=== PATIENT | female | born 1950 | race Hispanic/Latino ===

== ENCOUNTER 2019-06-14 13:00 | Outpatient (AMBR) | payer MEDICARE, MEDICAID, SELFPAY ==
--- NOTE | 2019-05-17 14:47 | PT.ODAYNRPT ---
PT Outpatient Daily Note Date of Service: May 17, 2019 OP Daily Note Visit Reasons: post op right knee Outpatient Physical Therapy Treatment Date: 05/17/19 Subjective: Pt mention that her knee feels good. No pain today in the knee. Objective: Please see flow chart for list of ther ex performed Assessment: difficulty with SAQ due to poor quad activation. Pt demonstrate improvement with knee flexion AROM allowing her to complete full sci fit cycle Plan: Continue with PT Length of Time (minutes) of Treatment: 30 Minutes Office Procedures PT Procedures PT Date of Service: 05/17/19 Therapeutic Exercise 30 minutes: Yes
--- NOTE | 2019-05-19 16:25 | PT.ODAYNRPT ---
PT Outpatient Daily Note Date of Service: May 19, 2019 OP Daily Note Visit Reasons: post op right knee Outpatient Physical Therapy Treatment Date: 05/19/19 Subjective: Pt's knee still buckle but is feeling much better. Pt mention that she feels better each PT session and notice her knee is moving more. Pt can now make a full coquille on the bike. Objective: Please see flow chart for list of ther ex performed Assessment: continue to improve with AAROM knee flexion up to 90 deg. Pt still guards with PROM due to pain and frequent cues to relax to increase knee flexion ROM. Plan: Continue with PT Length of Time (minutes) of Treatment: 30 Minutes Office Procedures PT Procedures PT Date of Service: 05/17/19 Therapeutic Exercise 30 minutes: Yes PT Procedures PT Date of Service: 05/19/19 Therapeutic Exercise 30 minutes: Yes
--- NOTE | 2019-05-21 13:50 | PTNOTE_ITS ---
PT Outpatient Daily Note Date of Service: May 21, 2019 OP Daily Note Visit Reasons: post op right knee Outpatient Physical Therapy Treatment Date: 05/21/19 Subjective: pt states she still has pain of the RLE. Objective: see flow sheet. Assessment: pt came in with FWW with antalgic gait pattern due to pain. pt lacks knee flexion as noted during PROM. she tolerated the stretching but with pain and discomfort. educated pt about the benefits of PROM. she's a fwe degrees from 90. advised pt to continue her HEP. she is hopeful in getting better. she continues to have weak quads with fait muscle force during SLR. Plan: continue POC per PT. Length of Time (minutes) of Treatment: 30 Minutes WOODEN FURNITURE POLISHER Service Modifier Method I: Divide the number of min of care provided by the WOODEN FURNITURE POLISHER/DESKTOP SUPPORT TECHNICIAN by the total min of care provided then multiply by 100. If greater than 11 percent modifier is required. Method II: Divide the total time of care provided to patient by 10 (round to the nearest whole number) and add 1 min. to set the minimum time requirement. If treatment total was 60 min., then 10% of 6 min Did WOODEN FURNITURE POLISHER provide more than 10% of the care?: Yes PT CQ modifier applied: CQ Modifier applied Office Procedures PT Procedures PT Date of Service: 05/21/19 Therapeutic Exercise 15 minutes: Yes Manual Mail Opener 15 minutes: Yes PT Procedures PT Date of Service: 05/17/19 Therapeutic Exercise 30 minutes: Yes PT Procedures PT Date of Service: 05/19/19 Therapeutic Exercise 30 minutes: Yes
--- NOTE | 2019-05-24 14:38 | PTNOTE_ITS ---
PT Outpatient Daily Note Date of Service: May 24, 2019 OP Daily Note Visit Reasons: post op right knee Outpatient Physical Therapy Treatment Date: 05/24/19 Subjective: Pt mention that her knee feels better. Objective: Knee flexion AROM/PROM: 91 deg//100 deg Assessment: Pt continues to improve with knee flexion AROM and mobility allowing her to bend knee more with preswing Plan: Continue with PT Length of Time (minutes) of Treatment: 30 Minutes Office Procedures PT Procedures PT Date of Service: 05/21/19 Therapeutic Exercise 15 minutes: Yes Manual Cycle Director 15 minutes: Yes PT Procedures PT Date of Service: 05/17/19 Therapeutic Exercise 30 minutes: Yes PT Procedures PT Date of Service: 05/19/19 Therapeutic Exercise 30 minutes: Yes PT Procedures PT Date of Service: 05/24/19 Therapeutic Exercise 30 minutes: Yes
--- NOTE | 2019-05-27 12:09 | PTNOTE_ITS ---
PT Outpatient Daily Note Date of Service: May 27, 2019 OP Daily Note Visit Reasons: post op right knee Outpatient Physical Therapy Treatment Date: 05/27/19 Subjective: Pt notice some seeping of blood and white pus from the top of her knee. Pt does not have any pain but notice the pus last night after she came out of the shower Objective: Please see flow chart for list of ther ex performed Assessment: tolerate exercises; no knee flexion performed today due to noticeable pus superior knee. Pt did not perform any knee flexion exercises today and advised to follow up with MD or head to ER if she notice yellow/green pus with warmth in the knee due to possible knee infection. Pt gave verbal consent Plan: Continue with PT Length of Time (minutes) of Treatment: 30 Minutes Office Procedures PT Procedures PT Date of Service: 05/21/19 Therapeutic Exercise 15 minutes: Yes Manual Supervisor Keymodule Assembly 15 minutes: Yes PT Procedures PT Date of Service: 05/27/19 Therapeutic Exercise 30 minutes: Yes PT Procedures PT Date of Service: 05/17/19 Therapeutic Exercise 30 minutes: Yes PT Procedures PT Date of Service: 05/19/19 Therapeutic Exercise 30 minutes: Yes PT Procedures PT Date of Service: 05/24/19 Therapeutic Exercise 30 minutes: Yes
--- NOTE | 2019-06-01 16:12 | PT.ODAYNRPT ---
PT Outpatient Daily Note Date of Service: June 01, 2019 OP Daily Note Visit Reasons: post op right knee Outpatient Physical Therapy Treatment Date: 06/01/19 Subjective: Pt mention that her knee is better. Pt was given antibiotic for her pinhole. Pt's pinhole closed again. Pt is walking better with less pain Objective: Please see flow chart for list of ther ex performed Assessment: no knee flexion stretches today to prevent scar from opening. Pt tolerate all exercises performed Plan: Continue with PT Length of Time (minutes) of Treatment: 30 Minutes Office Procedures PT Procedures PT Date of Service: 05/21/19 Therapeutic Exercise 15 minutes: Yes Manual Carbon Sequestration Plant Engineer 15 minutes: Yes PT Procedures PT Date of Service: 05/27/19 Therapeutic Exercise 30 minutes: Yes PT Procedures PT Date of Service: 05/17/19 Therapeutic Exercise 30 minutes: Yes PT Procedures PT Date of Service: 05/19/19 Therapeutic Exercise 30 minutes: Yes PT Procedures PT Date of Service: 05/24/19 Therapeutic Exercise 30 minutes: Yes PT Procedures PT Date of Service: 06/01/19 Therapeutic Exercise 30 minutes: Yes
--- NOTE | 2019-06-03 11:26 | PTNOTE_ITS ---
PT OP Progress/Discharge Note Date of Service: June 03, 2019 Progress Note/DC Note Progress Note/Discharge Note: Progress Note Patient Information Visit Reasons: post op right knee Medical Diagnosis: Z47.1; Z96.651 Treatment Dx #1: Right Knee Mobility Deficits Treatment Dx #2: Right Knee Weakness Service Continue Service or Discharge: Continue Service Certification Date Certification Dates: 06/03/19 to 09/03/19 Status Subjective: Pt mention that her left knee is feeling better. Pt mention that her pinhole is a lot better since she seen the surgeon. Pt continues to use antibiotic ointment on the knee. Pt's knee still jose david with prolonged walking and standing. Pt still has limitation with balance, self care, cooking, cleaning, chores, and performing normal ADLs. Objective: Right Knee AROM: 10 to 95 deg Right Knee MMTs Quads: 3/5 Hs: 3/5 Right Hip MMTs Glute Med: 3/5 Glute Max: 3/5 SLS: 1 sec Assessment: Pt demonstrate improvement with knee ROM and strength allowing her to ambulate and perform ADLs with less limitation. Pt still exhibit quad weakness leading to knee buckling with ambulation. Pt has not met set goals yet and will continue to benefit from physical therapy to work on ambulation, balanc e, and strength. Pt is consistent with her HEP and stretches at home, thank you for your referrals. Plan: Continue with PT/POC and add 6 sessions (2 x wk for 3 wks) Office Procedures PT Procedures PT Date of Service: 05/21/19 Therapeutic Exercise 15 minutes: Yes Manual Escort Car Driver 15 minutes: Yes PT Procedures PT Date of Service: 05/27/19 Therapeutic Exercise 30 minutes: Yes PT Procedures PT Date of Service: 06/03/19 Therapeutic Exercise 30 minutes: Yes PT Procedures PT Date of Service: 05/17/19 Therapeutic Exercise 30 minutes: Yes PT Procedures PT Date of Service: 05/19/19 Therapeutic Exercise 30 minutes: Yes PT Procedures PT Date of Service: 05/24/19 Therapeutic Exercise 30 minutes: Yes PT Procedures PT Date of Service: 06/01/19 Therapeutic Exercise 30 minutes: Yes
--- NOTE | 2019-06-07 13:05 | PTNOTE_ITS ---
PT Outpatient Daily Note Date of Service: June 07, 2019 OP Daily Note Visit Reasons: post op right knee Outpatient Physical Therapy Treatment Date: 06/07/19 Subjective: Pt mention that her knee still has a pinhole leak. Pt continues to stretch the knee at home which seems to open up the pinhole. Pt mention that her family wants her to stay home due to the virus. Objective: Please see flow chart for list of ther ex performed Assessment: no knee flexion stretching performed today due to pinhole opening superior to the scar. Pt advised not to stretch at home only in therapy session with supervision. Pt gave verbal consent. Plan: Continue with PT Length of Time (minutes) of Treatment: 30 Minutes Office Procedures PT Procedures PT Date of Service: 05/21/19 Therapeutic Exercise 15 minutes: Yes Manual President Finance Company 15 minutes: Yes PT Procedures PT Date of Service: 05/27/19 Therapeutic Exercise 30 minutes: Yes PT Procedures PT Date of Service: 06/03/19 Therapeutic Exercise 30 minutes: Yes PT Procedures PT Date of Service: 06/07/19 Therapeutic Exercise 30 minutes: Yes PT Procedures PT Date of Service: 05/17/19 Therapeutic Exercise 30 minutes: Yes PT Procedures PT Date of Service: 05/19/19 Therapeutic Exercise 30 minutes: Yes PT Procedures PT Date of Service: 05/24/19 Therapeutic Exercise 30 minutes: Yes PT Procedures PT Date of Service: 06/01/19 Therapeutic Exercise 30 minutes: Yes
--- NOTE | 2019-06-09 14:23 | PT.ODAYNRPT ---
PT Outpatient Daily Note Date of Service: June 09, 2019 OP Daily Note Visit Reasons: post op right knee Outpatient Physical Therapy Treatment Date: 06/09/19 Subjective: Pt notice light yellow coming out from the pinhole opening. Pt's knee feels good. Pt meniton that she thinks it's the CPM that cause the incision to open. Pt notice less knee buckling past week Objective: Please see flow chart for list of ther ex performed Assessment: inspected the pinhole opening and notice small amount of light serosanguineous pus no yellow coloration today. No knee flexion performed; more hip exercises today to allow incision to heal Plan: Continue with PT Length of Time (minutes) of Treatment: 30 Minutes Office Procedures PT Procedures PT Date of Service: 05/21/19 Therapeutic Exercise 15 minutes: Yes Manual Director [employer] 15 minutes: Yes PT Procedures PT Date of Service: 05/27/19 Therapeutic Exercise 30 minutes: Yes PT Procedures PT Date of Service: 06/03/19 Therapeutic Exercise 30 minutes: Yes PT Procedures PT Date of Service: 06/07/19 Therapeutic Exercise 30 minutes: Yes PT Procedures PT Date of Service: 05/17/19 Therapeutic Exercise 30 minutes: Yes PT Procedures PT Date of Service: 05/19/19 Therapeutic Exercise 30 minutes: Yes PT Procedures PT Date of Service: 05/24/19 Therapeutic Exercise 30 minutes: Yes PT Procedures PT Date of Service: 06/01/19 Therapeutic Exercise 30 minutes: Yes PT Procedures PT Date of Service: 06/09/19 Therapeutic Exercise 30 minutes: Yes
--- NOTE | 2019-06-14 13:36 | PT.ODAYNRPT ---
PT Outpatient Daily Note Date of Service: June 14, 2019 OP Daily Note Visit Reasons: post op right knee Outpatient Physical Therapy Treatment Date: 06/14/19 Subjective: Pt mention that her knee feels stiff lately due to not stretching as much. Pt's pinhole looks better just a little swollen around the knee. Objective: Please see flow chart for list of ther ex performed Assessment: heal pinhole opening noted; minimal knee flexion today. Pt tolerate all exercises today Plan: Continue with PT Length of Time (minutes) of Treatment: 30 Minutes Office Procedures PT Procedures PT Date of Service: 05/21/19 Therapeutic Exercise 15 minutes: Yes Manual Customer Professional 15 minutes: Yes PT Procedures PT Date of Service: 05/27/19 Therapeutic Exercise 30 minutes: Yes PT Procedures PT Date of Service: 06/03/19 Therapeutic Exercise 30 minutes: Yes PT Procedures PT Date of Service: 06/07/19 Therapeutic Exercise 30 minutes: Yes PT Procedures PT Date of Service: 05/17/19 Therapeutic Exercise 30 minutes: Yes PT Procedures PT Date of Service: 05/19/19 Therapeutic Exercise 30 minutes: Yes PT Procedures PT Date of Service: 05/24/19 Therapeutic Exercise 30 minutes: Yes PT Procedures PT Date of Service: 06/01/19 Therapeutic Exercise 30 minutes: Yes PT Procedures PT Date of Service: 06/09/19 Therapeutic Exercise 30 minutes: Yes PT Procedures PT Date of Service: 06/14/19 Therapeutic Exercise 30 minutes: Yes
== END 2019-06-15 23:59 | disposition home or self-care (01) ==
PROVIDERS: PCP Physician Assistant; Referring Provider Physician Assistant; Visit Provider Orthopaedic Surgery
DX: Z47.1 Aftercare following joint replacement surgery (principal); Z96.651 Presence of right artificial knee joint; M25.561 Pain in right knee; R53.1 Weakness; R26.2 Difficulty in walking, not elsewhere classified
CPT/HCPCS: 97110; 97140

== ENCOUNTER 2019-08-26 10:21 | Outpatient (AMBR) | payer MEDICARE, MEDICAID, SELFPAY ==
--- NOTE | 2019-08-26 14:05 | PT.OIERPT ---
PT OP Initial Eval Patient Information Visit Reasons: rigth knee LAURA Medical Diagnosis: Z01.818 Treatment Dx #1: Right Knee Mobility Deficits Treatment Dx #2: Right Knee Pain Start of Care: 08/26/19 Date of Onset: 08/25/19 Initial Assessment Subjective Pt is a 68 y/o female s/p knee LAURA 08/25/19 secondary to knee adhesion from knee replacement 04/19/19. Pt mention that her knee is a little more loose but continues to have pain. Pt currently still has limitation with prolonged standing, chores, cooking, walking, and performing recreational activities. Objective Right Knee AROM: -12 deg to 95 deg Right Knee MMTs Quads: 3+/5 Hs: 3+/5 Right Hip MMTs Glute Med: 3/5 Glute Max: 3/5 SLS: unable due to pain and fear of falling Assessment Pt demonstrate slight improvement in knee ROM after LAURA, however, continues to have flexion limitation which can relate to post-op pain and guarding since she is post-op day 1 knee LAURA. Pt will benefit from physical therapy to increase ROM, strength, and work on balance for safe mobility. Short Term and Earth Science Teacher Goals 1) Increase right knee flexion AROM to 115 deg in 4 wks to be able to perform squatting activities 2) Increase right knee MMTs to 4/5 in 4 wks to be able to perform stairs and steps 3) Increase right hip MMTs grossly to 4-/5 in 4 wks to be able to ambulate more than 2 hrs with single point cane 4) Decrease knee pain to 2/10 in 4 wks to be able to perform chores 5) Indep with HEP Treatment Plan 1) Manual Therapy 2) Therapeutic Activities 3) Therapeutic Exercises 4) Modalities (ice, heat) 5) Balance Training Frequency and Duration 3 x wk for 4 wks Certification Dates: 08/26/19 to 11/26/19 Office Procedures PT Procedures PT Date of Service: 08/26/19 OP PT Re-evaluation: Yes
--- NOTE | 2019-08-27 10:28 | PT.ODAYNRPT ---
PT Outpatient Daily Note Date of Service: 08/27/2019 OP Daily Note Visit Reasons: rigth knee LAURA Outpatient Physical Therapy Treatment Date: 08/27/19 Subjective: pt states she still in pain and feels her knee stiff. Objective: see flow sheet. Assessment: pt did well on the scifit to begin with followed by ther ex. she does hip hike while on the bike to compensate for the pain. she ambulated with SPC and antalgic gait pattern. she walked around the gym without the cane but is unsteady and has decreased step length. during her PROM of knee flexion she tolerated well as she is understanding of the treatment. her knee is able to relax and stretch but still very swollen with surrounding muscle tightness. Plan: continue POC per PT. Length of Time (minutes) of Treatment: 30 Minutes GOURMET COFFEE ATTENDANT Service Modifier Method I: Divide the number of min of care provided by the GOURMET COFFEE ATTENDANT/SR COMMUNITY MANAGER by the total min of care provided then multiply by 100. If greater than 11 percent modifier is required. Method II: Divide the total time of care provided to patient by 10 (round to the nearest whole number) and add 1 min. to set the minimum time requirement. If treatment total was 60 min., then 10% of 6 min Did GOURMET COFFEE ATTENDANT provide more than 10% of the care?: Yes PT CQ modifier applied: CQ Modifier applied Office Procedures PT Procedures PT Date of Service: 08/26/19 OP PT Re-evaluation: Yes PT Procedures PT Date of Service: 08/27/19 Therapeutic Exercise 30 minutes: Yes
--- NOTE | 2019-08-31 10:24 | PT.ODAYNRPT ---
PT Outpatient Daily Note Date of Service: 08/31/19 OP Daily Note Visit Reasons: rigth knee LAURA Outpatient Physical Therapy Treatment Date: 08/31/19 Subjective: Pt's knee feels worse and more stiff after the manipulation. Pt now has difficulty walking due to knee pain Objective: Please see flow chart for list of ther ex performed Assessment: still exhibit minimal knee flexion gain from knee LAURA. Pt had difficulty tolerating knee flexion stretch due to pain. Pt demonstrate antalgic gait after therapy session Plan: Continue with PT Length of Time (minutes) of Treatment: 30 Minutes Office Procedures PT Procedures PT Date of Service: 08/26/19 OP PT Re-evaluation: Yes PT Procedures PT Date of Service: 08/27/19 Therapeutic Exercise 30 minutes: Yes PT Procedures PT Date of Service: 08/31/19 Therapeutic Exercise 30 minutes: Yes
--- NOTE | 2019-09-02 09:35 | PT.ODAYNRPT ---
PT Outpatient Daily Note Date of Service: 09/02/2019 OP Daily Note Visit Reasons: rigth knee LAURA Outpatient Physical Therapy Treatment Date: 09/02/19 Subjective: pt states her knee is feeling better due to her compliance of the HEP. Objective: see flow sheet. Assessment: pt continues to use AD. noted during PROM of knee flexion she is able to relax and tolerate the stretches. knee flexion about 90-100 degrees. she is not complaining during the reps of stretching. she is able to stand from chair a few reps with no hands and LOB. her foot placement is R further back to be able to push up from the RLE. Plan: continue POC per PT. Length of Time (minutes) of Treatment: 30 Minutes DIVERSIFIED CROPS I FARMWORKER Service Modifier Method I: Divide the number of min of care provided by the DIVERSIFIED CROPS I FARMWORKER/VY by the total min of care provided then multiply by 100. If greater than 11 percent modifier is required. Method II: Divide the total time of care provided to patient by 10 (round to the nearest whole number) and add 1 min. to set the minimum time requirement. If treatment total was 60 min., then 10% of 6 min Did DIVERSIFIED CROPS I FARMWORKER provide more than 10% of the care?: Yes PT CQ modifier applied: CQ Modifier applied Office Procedures PT Procedures PT Date of Service: 09/02/19 Therapeutic Exercise 30 minutes: Yes PT Procedures PT Date of Service: 08/26/19 OP PT Re-evaluation: Yes PT Procedures PT Date of Service: 08/27/19 Therapeutic Exercise 30 minutes: Yes PT Procedures PT Date of Service: 08/31/19 Therapeutic Exercise 30 minutes: Yes
--- NOTE | 2019-09-06 11:11 | PT.ODAYNRPT ---
PT Outpatient Daily Note Date of Service: 09/06/19 OP Daily Note Visit Reasons: rigth knee LAURA Outpatient Physical Therapy Treatment Date: 09/06/19 Subjective: Pt's knee is feeling better seems to be able to bend the knee more. Pt still has limitation with deeper squat. Objective: Please see flow chart for list of ther ex performed Assessment: tolerate exercises with minimal pain; able to stretch more into flexion with less knee pain Plan: Continue with PT Length of Time (minutes) of Treatment: 30 Minutes Office Procedures PT Procedures PT Date of Service: 09/02/19 Therapeutic Exercise 30 minutes: Yes PT Procedures PT Date of Service: 08/26/19 OP PT Re-evaluation: Yes PT Procedures PT Date of Service: 08/27/19 Therapeutic Exercise 30 minutes: Yes PT Procedures PT Date of Service: 08/31/19 Therapeutic Exercise 30 minutes: Yes PT Procedures PT Date of Service: 09/06/19 Therapeutic Exercise 30 minutes: Yes
--- NOTE | 2019-09-10 12:54 | PT.ODS1RPT ---
PT OP Progress/Discharge Note Date of Service: 09/10/19 Progress Note/DC Note Progress Note/Discharge Note: DC Note Patient Information Visit Reasons: rigth knee LAURA Medical Diagnosis: Z01.818 Treatment Dx #1: Right Knee Mobility Deficits Treatment Dx #2: Right Knee Pain Service Continue Service or Discharge: Discharge Discharge Date: 09/10/19 Status Subjective: Pt mention that she recently saw surgeon and wants her to continue physical therapy. Pt's knee is feeling much better with less pain. Pt mention that LAURA help her knee bend more. Pt mention that walking, standing, chores, and self care is easier. Pt decline to sign ABN form and wants HEP for home and will continue exercises at home due to not having money to pay for PT services if medicare does not cover the cost. Objective: Right Knee AROM: -8 deg to 110 deg Right Knee MMTs Quads: 4-/5 Hs: 4-/5 Right Hip MMTs Glute Med: 3+/5 Glute Max: 3+/5 SLS: 3 sec Assessment: Pt demonstrate functional knee mobility and strength, however, has not met set goals. Pt decline to sign medicare ABN form where she may have to pay out of pocket due to reaching medicare therapy cap (30 sessions). Pt wanted to be d/c from care after today's session with exercises to continue. Pt was instructed on HEP and advised to continue for several weeks. Pt performed all exercises safely. Despite not meeting set goals Pt demonstrate improvement with functional movement and ROM allowing her to perform ADLs with less limitation. At this time Pt will be d/c from care per Pt's request, thank you for your referrals. Plan: D/C home with HEP and follow up with surgeon PRN Office Procedures PT Procedures PT Date of Service: 09/02/19 Therapeutic Exercise 30 minutes: Yes PT Procedures PT Date of Service: 09/10/19 Therapeutic Exercise 15 minutes: Yes Self Care/Home Mgmt 15 minutes: Yes PT Procedures PT Date of Service: 08/26/19 OP PT Re-evaluation: Yes PT Procedures PT Date of Service: 08/27/19 Therapeutic Exercise 30 minutes: Yes PT Procedures PT Date of Service: 08/31/19 Therapeutic Exercise 30 minutes: Yes PT Procedures PT Date of Service: 09/06/19 Therapeutic Exercise 30 minutes: Yes
== END 2019-09-14 23:59 | disposition home or self-care (01) ==
PROVIDERS: PCP Physician Assistant; Referring Provider Physician Assistant; Visit Provider Orthopaedic Surgery
DX: Z01.818 Encounter for other preprocedural examination (principal); M25.562 Pain in left knee
CPT/HCPCS: 97110; 97164; 97535